=== PATIENT | female | born 1970 | race Two or more races ===

== ENCOUNTER 2019-12-07 08:06 | Outpatient (CLI) | payer OTHER | END 2019-12-07 08:21 | disposition home or self-care (01) | LOC: NUCLEAR 08:06 | PROVIDERS: ATTEND Specialist | DX: E05.20 Thyrotoxicosis with toxic multinodular goiter without thyrotoxic crisis or storm (principal) | CPT/HCPCS: 78012; A9531 ==

== ENCOUNTER 2019-12-08 08:39 | Outpatient (CLI) | payer OTHER | END 2019-12-08 08:55 | disposition home or self-care (01) | LOC: NUCLEAR 08:39 | PROVIDERS: ATTEND Specialist | DX: E05.20 Thyrotoxicosis with toxic multinodular goiter without thyrotoxic crisis or storm (principal) | CPT/HCPCS: 78013; A9512 ==

== ENCOUNTER 2024-09-02 07:59 | Outpatient (CLI) | payer OTHER | END 2024-09-02 08:02 | disposition home or self-care (01) | LOC: SONOGRAMA 07:59 | PROVIDERS: ATTEND Pathology Anatomic Pathology & Clinical Pathology | DX: D34 Benign neoplasm of thyroid gland (principal); E06.3 Autoimmune thyroiditis; E04.2 Nontoxic multinodular goiter ==